=== PATIENT | female | born 1950 | race African-American/Black ===

== ENCOUNTER 2018-10-09 16:26 | Emergency (ER) | payer MEDICARE ==
[2018-10-09] MEDS ORDERED: ASPIRIN 81 MG TABLET, CHEWABLE PO ONE (17:25)
--- NOTE | 2018-10-09 17:27 | ER Document Report ---
ED Medical Screen (RME) - General Chief Complaint: Chest Pain Stated Complaint: CHEST PAIN Time Seen by Provider: 10/09/18 17:15 Notes: 68-year-old female with one-week history of worsening chest pain. 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 Could not go see them because she did not have the co-pay. Did have a recent CT calcium score with a score in the 80s giving her moderate coronary artery disease and moderate risk. Patient states that she also has a cough and some mild shortness of breath. Pain radiates around central portion of chest to her back. Does have fibromyalgia. Does have diabetes, family history of heart disease, hypertension, hyperlipidemia not treated. I have greeted and performed a rapid initial assessment of this patient. A comprehensive ED assessment and evaluation of the patient, analysis of test results and completion of the medical decision making process will be conducted by additional ED providers. TRAVEL OUTSIDE OF THE [place] IN LAST 30 DAYS: No - Related Data Allergies/Adverse Reactions: codeine Allergy (Verified 10/09/18 16:29) erythromycin base Allergy (Verified 10/09/18 16:29) Past Medical History - General Information source: Patient - Social History Chew tobacco use (# tins/day): No Frequency of alcohol use: None Drug Abuse: None Pulmonary Medical History: Reports: Hx COPD Endocrine Medical History: Reports: Hx Diabetes Mellitus Type 2 Renal/ Medical History: Denies: Hx Peritoneal Dialysis Past Surgical History: Reports: Hx Abdominal Surgery - obstruction, Hx Hysterectomy Review of Systems - Review of Systems Notes: Review of systems positive for the following: Chest pain, shortness of breath Physical Exam - Vital signs Vitals: Temp Pulse Resp BP Pulse Ox 98.5 F 100 18 143/71 H 97 10/09/18 16:41 10/09/18 16:41 10/09/18 16:41 10/09/18 16:41 10/09/18 16:41 Course - Vital Signs Vital signs: Temp Pulse Resp BP Pulse Ox 98.5 F 100 18 143/71 H 97 10/09/18 16:41 10/09/18 16:41 10/09/18 16:41 10/09/18 16:41 10/09/18 16:41
--- NOTE | 2018-10-09 17:55 | RADIOLOGY REPORT (SQ) ---
EXAM DESCRIPTION: CHEST SINGLE VIEW COMPLETED DATE/TIME: 10/09/2018 5:48 pm REASON FOR STUDY: chest pain COMPARISON: None. EXAM PARAMETERS: NUMBER OF VIEWS: One view. TECHNIQUE: Single frontal radiographic view of the chest acquired. RADIATION DOSE: NA LIMITATIONS: None. FINDINGS: LUNGS AND PLEURA: No opacities, masses or pneumothorax. No pleural effusion. MEDIASTINUM AND HILAR STRUCTURES: No masses. Contour normal. HEART AND VASCULAR STRUCTURES: Heart normal in size. Normal vasculature. BONES: No acute findings. HARDWARE: None in the chest. OTHER: No other significant finding. IMPRESSION: NO ACUTE RADIOGRAPHIC FINDING IN THE CHEST. TECHNICAL DOCUMENTATION: JOB ID: [id number] [employer]- All Rights Reserved Reading location - IP/workstation name: [email or web address]
--- NOTE | 2018-10-09 19:25 | EKG REPORT ---
SEVERITY:- BORDERLINE ECG - SINUS RHYTHM PROBABLE LEFT ATRIAL ABNORMALITY : Confirmed by: Jayy Mcdonough 09-Oct-2018 19:24:50
[2018-10-09 19:33] LABS: ABSOLUTE BASOPHILS # (AUTO) 0.1 10^3/uL (0.0-0.2); ABSOLUTE EOSINOPHILS # (AUTO) 0.2 10^3/uL (0.0-0.6); ABSOLUTE LYMPHOCYTES (AUTO) 2.8 10^3/uL (0.5-4.7); ABSOLUTE MONOCYTES (AUTO) 0.8 10^3/uL (0.1-1.4); ABSOLUTE NEUT (AUTO) 7.2 10^3/uL (1.7-8.2); BASOPHILS % (AUTO) 1.2 % (0-2); HEMATOCRIT 35.5 % (36.0-47.0); HEMOGLOBIN 11.5 g/dL (12.0-15.5); LYMPHOCYTES % (AUTO) 25.4 % (13-45); MEAN CORPUSCULAR HEMOGLOBIN 27.4 pg (27.0-33.4); MEAN CORPUSCULAR HGB CONC 32.4 g/dL (32.0-36.0); MEAN CORPUSCULAR VOLUME 85 fl (80-97); PLATELET COUNT 325 10^3/uL (150-450); RED BLOOD COUNT 4.19 10^6/uL (3.72-5.28); RED CELL DISTRIBUTION WIDTH 15.7 % (11.5-14.0); SEGMENTED NEUTROPHILS % (AUTO) 64.4 % (42-78); TOTAL CELLS COUNTED % (AUTO) 100 %; WHITE BLOOD COUNT 11.2 10^3/uL (4.0-10.5)
[2018-10-09 19:49] LABS: ALANINE AMINOTRANSFERASE 29 U/L (9-52); ALBUMIN 4.4 g/dL (3.5-5.0); ALKALINE PHOSPHATASE 95 U/L (38-126); ANION GAP 10 (5-19); ASPARTATE AMINO TRANSFERASE 24 U/L (14-36); BILIRUBIN,DIRECT 0.2 mg/dL (0.0-0.4); BILIRUBIN,TOTAL 0.2 mg/dL (0.2-1.3); BLOOD UREA NITROGEN 15 mg/dL (7-20); CALCIUM 9.8 mg/dL (8.4-10.2); CARBON DIOXIDE 26 mmol/L (22-30); CHLORIDE 103 mmol/L (98-107); CREATINE KINASE 123 U/L (30-135); GLUCOSE 115 mg/dL (75-110); POTASSIUM 4.4 mmol/L (3.6-5.0); SODIUM 138.9 mmol/L (137-145); TOTAL PROTEIN 7.2 g/dL (6.3-8.2)
[2018-10-09 20:01] LABS: CREATINE KINASE MB 1.43 ng/mL (<4.55)
[2018-10-09 20:02] LABS: TROPONIN I < 0.012 ng/mL
--- NOTE | 2018-10-09 20:23 | ER Document Report ---
ED General - General Chief Complaint: Chest Pain Stated Complaint: CHEST PAIN Time Seen by Provider: 10/09/18 17:15 TRAVEL OUTSIDE OF THE [place] IN LAST 30 DAYS: No - Related Data Allergies/Adverse Reactions: codeine Allergy (Verified 10/09/18 16:29) erythromycin base Allergy (Verified 10/09/18 16:29) Past Medical History - General Information source: Patient - Social History Smoking Status: Former Smoker Chew tobacco use (# tins/day): No Frequency of alcohol use: None Drug Abuse: None Patient has suicidal ideation: No Patient has homicidal ideation: No Pulmonary Medical History: Reports: Hx COPD Endocrine Medical History: Reports: Hx Diabetes Mellitus Type 2 Renal/ Medical History: Denies: Hx Peritoneal Dialysis Past Surgical History: Reports: Hx Abdominal Surgery - obstruction, Hx Hysterectomy Physical Exam - Vital signs Vitals: Temp Pulse Resp BP Pulse Ox 98.5 F 100 18 143/71 H 97 10/09/18 16:41 10/09/18 16:41 10/09/18 16:41 10/09/18 16:41 10/09/18 16:41 Course - Vital Signs Vital signs: Temp Pulse Resp BP Pulse Ox 98.5 F 100 18 117/93 H 98 10/09/18 16:41 10/09/18 16:41 10/09/18 20:01 10/09/18 19:49 10/09/18 20:01 - Laboratory Result Diagrams: 10/09/18 19:20 10/09/18 19:20 Laboratory results interpreted by me: 10/09/18 10/09/18 19:20 19:20 WBC 11.2 H Hgb 11.5 L Hct 35.5 L RDW 15.7 H Glucose 115 H Discharge - Discharge Referrals: HENRIK JEFFERSON MD [Primary Care Provider] - Follow up as needed
--- NOTE | 2018-10-09 20:25 | ER Document Report ---
ED General - General Chief Complaint: Chest Pain Stated Complaint: CHEST PAIN Time Seen by Provider: 10/09/18 17:15 TRAVEL OUTSIDE OF THE [place] IN LAST 30 DAYS: No - HPI Patient complains to provider of: Chest pain shortness of breath Notes: Patient coming in for chest pain shortness of breath ongoing for greater than 2 weeks intermittent. Patient was seen by triage provider's notes provided below 68-year-old female with one-week history of worsening chest pain. 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 Could not go see them because she did not have the co-pay. Did have a recent CT calcium score with a score in the 80s giving her moderate coronary artery disease and moderate risk. Patient states that she also has a cough and some mild shortness of breath. Pain radiates around central portion of chest to her back. Does have fibromyalgia. Does have diabetes, family history of heart disease, hypertension, hyperlipidemia not treated. Patient upon my evaluation states 2 weeks of symptoms. Patient states she was supposed to start medications for her recent CT calcium score however has yet to be placed on these medications. Patient currently states he is chest pain-free. Patient states chest pain has been intermittent worsen whenever she ambulates. Patient denies any other cardiac testing such as an echo stress test or catheterization in the past. Patient states that he does have inhalers that she uses at home for underlying respiratory disease however states that she has not been used denies any recent antibiotic denies any fever chills nausea vomiting diarrhea - Related Data Allergies/Adverse Reactions: codeine Allergy (Verified 10/09/18 16:29) erythromycin base Allergy (Verified 10/09/18 16:29) Past Medical History - General Information source: Patient - Social History Smoking Status: Former Smoker Chew tobacco use (# tins/day): No Frequency of alcohol use: None Drug Abuse: None Family History: Reviewed & Not Pertinent Patient has suicidal ideation: No Patient has homicidal ideation: No Pulmonary Medical History: Reports: Hx COPD Endocrine Medical History: Reports: Hx Diabetes Mellitus Type 2 Renal/ Medical History: Denies: Hx Peritoneal Dialysis Past Surgical History: Reports: Hx Abdominal Surgery - obstruction, Hx Hysterectomy Review of Systems - Review of Systems Constitutional: No symptoms reported EENT: No symptoms reported Cardiovascular: Chest pain Respiratory: No symptoms reported Gastrointestinal: No symptoms reported Genitourinary: No symptoms reported Female Genitourinary: No symptoms reported Musculoskeletal: No symptoms reported Skin: No symptoms reported Hematologic/Lymphatic: No symptoms reported Neurological/Psychological: No symptoms reported -: Yes All other systems reviewed and negative Physical Exam - Vital signs Vitals: Temp Pulse Resp BP Pulse Ox 98.5 F 100 18 143/71 H 97 10/09/18 16:41 10/09/18 16:41 10/09/18 16:41 10/09/18 16:41 10/09/18 16:41 Interpretation: Normal - General General appearance: Appears well, Alert - HEENT Head: Normocephalic, Atraumatic Eyes: Normal Pupils: PERRL - Respiratory Respiratory status: No respiratory distress Chest status: Nontender Breath sounds: Normal Chest palpation: Normal - Cardiovascular Rhythm: Regular Heart sounds: Normal auscultation Murmur: No - Abdominal Inspection: Normal Distension: No distension Bowel sounds: Normal Tenderness: Nontender Organomegaly: No organomegaly - Back Back: Normal, Nontender - Extremities General upper extremity: Normal inspection, Nontender, Normal color, Normal ROM, Normal temperature General lower extremity: Normal inspection, Nontender, Normal color, Normal ROM, Normal temperature, Normal weight bearing. No: Bernardo's sign - Neurological Neuro grossly intact: Yes Cognition: Normal Orientation: AAOx4 [place] Coma Scale Eye Opening: Spontaneous [place] Coma Scale Verbal: Oriented [place] Coma Scale Motor: Obeys Commands Dana Coma Scale Total: 15 Speech: Normal Motor strength normal: LUE, RUE, LLE, RLE Sensory: Normal - Psychological Associated symptoms: Normal affect, Normal mood - Skin Skin Temperature: Warm Skin Moisture: Dry Skin Color: Normal Course - Re-evaluation Re-evalutation: 10/10/18 03:10 Patient coming in for evaluation of chest pain shortness of breath ongoing for greater than [address] scan laboratory results EKG were discussed with cardiology on-call Dr. Hannon recommends with negative troponin at this time patient be discharged he will follow-up with the patient in the next 24-48 hours requesting that we give the patient his cell phone number. Recommend that we start patient aspirin statin metoprolol and long-acting nitrate. Discussed with the patient she agrees with this plan at this time. - Vital Signs Vital signs: Temp Pulse Resp BP Pulse Ox 98.5 F 100 18 149/79 H 97 10/09/18 16:41 10/09/18 16:41 10/09/18 23:01 10/09/18 23:01 10/09/18 23:01 - Laboratory Result Diagrams: 10/09/18 19:20 10/09/18 19:20 Laboratory results interpreted by me: 10/09/18 10/09/18 10/09/18 19:20 19:20 21:22 WBC 11.2 H Hgb 11.5 L Hct 35.5 L RDW 15.7 H Glucose 115 H Cholesterol 250.65 H LDL Cholesterol Direct 168 H Discharge - Discharge Clinical Impression: Chest pain Qualifiers: Chest pain type: unspecified Qualified Code(s): R07.9 - Chest pain, unspecified Condition: Good Disposition: HOME, SELF-CARE Instructions: Aspirin (Cardiac) (OM), Chest Pain of Unclear Cause (OM), Nitr ates (OM) Additional Instructions: I discussed your laboratory findings your recent testing with our manager mutual fund Dr. Hannon. At this time he recommends that we start you on a low-dose statin medication such as Crestor aspirin 325 and Imdur. Please call him tomorrow to set up a follow-up appointment Dr Hannon . Please take all your other medications as previously prescribed return to ER symptoms worsen Prescriptions: Aspirin [Aspirin 325 mg Tablet] 325 mg PO DAILY PRN #1 pkg PRN Reason: Isosorbide Mononitrate [Imdur 30 mg Tablet.er] 30 mg PO DAILY #30 tab.er.24h Metoprolol Succinate [Toprol Xl] 12.5 mg PO DAILY #30 tab.er.24h Rosuvastatin Calcium [Crestor 10 mg Tablet] 10 mg PO DAILY #30 tablet Referrals: HENRIK JEFFERSON MD [Primary Care Provider] - Follow up as needed
[2018-10-09 21:53] LABS: CHOLESTEROL 250.65 mg/dL (0-200); TRIGLYCERIDES 107 mg/dL (<150)
[2018-10-09 22:03] LABS: DIRECT LDL 168 mg/dL (<100)
[2018-10-09] MEDS ORDERED: ATORVASTATIN CALCIUM 20 MG TABLET PO ONE (22:28)
[2018-10-09 23:04] VITALS: BP 149/79
== END 2018-10-09 23:14 | disposition home or self-care (01) ==
LOC: ER 16:26
DX: R07.9 Chest pain, unspecified (principal); R06.02 Shortness of breath; I25.10 Atherosclerotic heart disease of native coronary artery without angina pectoris; R05 Cough; E11.9 Type 2 diabetes mellitus without complications; I10 Essential (primary) hypertension; Z87.891 Personal history of nicotine dependence; J44.9 Chronic obstructive pulmonary disease, unspecified
CPT/HCPCS: 93005; 99284; 36415; 82553; 82550; 85025; 80053; 84484; 80061; 71045; 93010; A9270

== ENCOUNTER 2018-11-08 17:33 | Emergency (ER) | payer MEDICARE ==
[2018-11-08 18:05] LABS: ABSOLUTE BASOPHILS # (AUTO) 0.1 10^3/uL (0.0-0.2); ABSOLUTE EOSINOPHILS # (AUTO) 0.2 10^3/uL (0.0-0.6); ABSOLUTE LYMPHOCYTES (AUTO) 1.6 10^3/uL (0.5-4.7); ABSOLUTE MONOCYTES (AUTO) 0.8 10^3/uL (0.1-1.4); ABSOLUTE NEUT (AUTO) 8.1 10^3/uL (1.7-8.2); BASOPHILS % (AUTO) 0.6 % (0-2); EOSINOPHILS % (AUTO) 1.4 % (0-6); HEMATOCRIT 36.9 % (36.0-47.0); HEMOGLOBIN 12.1 g/dL (12.0-15.5); MEAN CORPUSCULAR HEMOGLOBIN 27.7 pg (27.0-33.4); MEAN CORPUSCULAR HGB CONC 32.9 g/dL (32.0-36.0); MEAN CORPUSCULAR VOLUME 84 fl (80-97); MONOCYTES % (AUTO) 7.1 % (3-13); PLATELET COUNT 334 10^3/uL (150-450); RED BLOOD COUNT 4.38 10^6/uL (3.72-5.28); RED CELL DISTRIBUTION WIDTH 15.8 % (11.5-14.0); SEGMENTED NEUTROPHILS % (AUTO) 75.9 % (42-78); TOTAL CELLS COUNTED % (AUTO) 100 %; WHITE BLOOD COUNT 10.7 10^3/uL (4.0-10.5)
[2018-11-08 18:24] LABS: ALANINE AMINOTRANSFERASE 29 U/L (9-52); ALBUMIN 4.5 g/dL (3.5-5.0); ALKALINE PHOSPHATASE 122 U/L (38-126); ANION GAP 13 (5-19); ASPARTATE AMINO TRANSFERASE 27 U/L (14-36); BILIRUBIN,DIRECT 0.3 mg/dL (0.0-0.4); BILIRUBIN,TOTAL 0.3 mg/dL (0.2-1.3); BLOOD UREA NITROGEN 15 mg/dL (7-20); CALCIUM 9.7 mg/dL (8.4-10.2); CARBON DIOXIDE 27 mmol/L (22-30); CHLORIDE 100 mmol/L (98-107); CREATINE KINASE 125 U/L (30-135); GLUCOSE 345 mg/dL (75-110); POTASSIUM 4.6 mmol/L (3.6-5.0); SODIUM 140.3 mmol/L (137-145); TOTAL PROTEIN 7.3 g/dL (6.3-8.2)
--- NOTE | 2018-11-08 18:25 | RADIOLOGY REPORT (SQ) ---
EXAM DESCRIPTION: CHEST SINGLE VIEW COMPLETED DATE/TIME: 11/08/2018 6:15 pm REASON FOR STUDY: bed 11 cp COMPARISON: None. EXAM PARAMETERS: NUMBER OF VIEWS: One view. TECHNIQUE: Single frontal radiographic view of the chest acquired. RADIATION DOSE: NA LIMITATIONS: None. FINDINGS: LUNGS AND PLEURA: No opacities, masses or pneumothorax. No pleural effusion. MEDIASTINUM AND HILAR STRUCTURES: No masses. Contour normal. HEART AND VASCULAR STRUCTURES: Heart normal in size. Normal vasculature. BONES: No acute findings. HARDWARE: None in the chest. OTHER: No other significant finding. IMPRESSION: NO ACUTE RADIOGRAPHIC FINDING IN THE CHEST. TECHNICAL DOCUMENTATION: JOB ID: [id number] [employer]- All Rights Reserved Reading location - IP/workstation name: [email or web address]
[2018-11-08 18:34] LABS: CREATINE KINASE MB 1.45 ng/mL (<4.55); TROPONIN I 0.014 ng/mL
--- NOTE | 2018-11-08 19:26 | ER Document Report ---
ED General - General Chief Complaint: Chest Pain Stated Complaint: CHEST PAIN Time Seen by Provider: 11/08/18 18:28 Primary Care Provider: HENRIK JEFFERSON MD [Primary Care Provider] - Follow up as needed LUCILLE RANGEL MD [ACTIVE STAFF] - Follow up in 3-5 days Notes: Patient is a 68-year-old female with a past medical history of diabetes, hyperlipidemia, hypertension, no history of coronary artery events who presents with recurrent chest pain. Patient reports that for the past 2-3 months she has had intermittent episodes of left-sided chest discomfort. States these episodes come on abruptly sometimes during exertion and other times during rest. It is described as an aching, cramping type of pain usually in her left chest without radiation. Notes associated nausea but no diaphoresis or shortness of breath. She has had 3 similar episodes today. States that she has had dozens over the past several months. She has been following with Dr. Rangel, had a negative stress test, normal echocardiogram and normal Holter monitor within the past several weeks. She last saw Dr. Rangel today. Came by EMS today due to a recurrent episode of chest pain which has since resolved. The patient currently denies any symptoms. She did take nitroglycerin at home with some relief of her chest discomfort. No obvious triggering factor today. TRAVEL OUTSIDE OF THE [place] IN LAST 30 DAYS: No - Related Data Allergies/Adverse Reactions: codeine Allergy (Verified 10/09/18 16:29) erythromycin base Allergy (Verified 10/09/18 16:29) Past Medical History - General Information source: Patient - Social History Smoking Status: Never Smoker Frequency of alcohol use: None Drug Abuse: None Lives with: Friend Family History: Reviewed & Not Pertinent Patient has suicidal ideation: No Patient has homicidal ideation: No Pulmonary Medical History: Reports: Hx COPD Endocrine Medical History: Reports: Hx Diabetes Mellitus Type 2 Renal/ Medical History: Denies: Hx Peritoneal Dialysis Past Surgical History: Reports: Hx Abdominal Surgery - obstruction, Hx Hysterectomy Review of Systems - Review of Systems Notes: Constitutional: Negative for fever. HENT: Negative for sore throat. Eyes: Negative for visual changes. Cardiovascular: Positive for chest pain. Respiratory: Negative for shortness of breath. Gastrointestinal: Negative for abdominal pain, vomiting or diarrhea. Genitourinary: Negative for dysuria. Musculoskeletal: Negative for back pain. Skin: Negative for rash. Neurological: Negative for headaches, weakness or numbness. 10 point ROS negative except as marked above and in HPI. Physical Exam - Vital signs Vitals: Resp Pulse Ox 24 H 95 11/08/18 18:09 11/08/18 18:09 Interpretation: Normal - Patient is not tachypneic at the time of my evaluation without respiratory rate of 18, Hypertensive Notes: PHYSICAL EXAMINATION: GENERAL: Well-appearing, well-nourished and in no acute distress. HEAD: Atraumatic, normocephalic. EYES: Pupils equal round and reactive to light, extraocular movements intact, sclera anicteric, conjunctiva are normal. ENT: nares patent, oropharynx clear without exudates. Moist mucous membranes. NECK: Normal range of motion, supple without lymphadenopathy LUNGS: Breath sounds clear to auscultation bilaterally and equal. No wheezes rales or rhonchi. HEART: Regular rate and rhythm, faint, 2 out of 6 systolic ejection murmur ABDOMEN: Soft, nontender, normoactive bowel sounds. No guarding, no rebound. No masses appreciated. EXTREMITIES: Normal range of motion, no pitting or edema. No cyanosis. NEUROLOGICAL: No focal neurological deficits. Moves all extremities spontaneously and on command. PSYCH: Normal mood, normal affect. SKIN: Warm, Dry, normal turgor, no rashes or lesions noted. Course - Re-evaluation Re-evalutation: 11/08/18 19:24 Presentation of chest pain in an otherwise well appearing patient. Low clinical suspicion for ACS given clinical history, exam, EKG without ST elevations or depressions, and negative initial troponin. Repeat troponin will be done 3 hours after initial. PE also seems unlikely given clinical history, absence of tachycardia or dyspnea. Wells score is 0. CXR without evidence of pneumothorax or pneumonia. No widened mediastinum. Aortic dissection also seems unlikely given history, symmetric pulses, CXR, and vitals. Patient has had a negative stress test within the last 1 week as well as a normal echocardiogram and normal Holter monitor test. 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 Radha pinto who suspects agrees with our plan. 11/08/18 21:27 Repeat trop has increased to 0.123. Patient remains without chest pain. Repeat EKG remains unchanged without EKG changes. I discussed with Dr. Rangel who recommends transfer for cardiac catheterization. 11/08/18 21:54 Patient remains chest pain-free. I discussed this case with the resident at [facility] covering for Dr. Vazquez who has accepted the patient on Dr. Vazquez's behalf. Patient has received a dose of enoxaparin, aspirin and atorvastatin. Remains chest pain-free. 2350-patient is cleared and stable for transfer - Vital Signs Vital signs: Temp Pulse Resp BP Pulse Ox 97.7 F 20 133/66 H 97 11/08/18 23:20 11/08/18 23:01 11/08/18 23:01 11/08/18 23:01 - Laboratory Result Diagrams: 11/08/18 17:28 11/08/18 17:28 Laboratory results interpreted by me: 11/08/18 11/08/18 17:28 17:28 WBC 10.7 H RDW 15.8 H Glucose 345 H - Diagnostic Test Radiology reviewed: Image reviewed, Reports reviewed Radiology results interpreted by me: 11/08/18 19:24 Chest x-ray: No acute infiltrate or pneumothorax - EKG Interpretation by Me Additional EKG results interpreted by me: 11/08/18 19:24 Sinus rhythm, rate 97. No ST elevations or depressions. QTC is 442. Discharge - Discharge Clinical Impression: Recurrent chest pain Condition: Fair Disposition: [facility] Referrals: HENRIK JEFFERSON MD [Primary Care Provider] - Follow up as needed LUCILLE RANGEL MD [ACTIVE STAFF] - Follow up in 3-5 days
[2018-11-08] MEDS ORDERED: ASPIRIN 81 MG TABLET, CHEWABLE PO ONE (21:52)
[2018-11-08] MEDS ORDERED: ATORVASTATIN CALCIUM 80 MG TABLET PO ONE (21:52)
[2018-11-08] MEDS ORDERED: NITROGLYCERIN 0.4 MG/TAB 25 TAB/BOTTLE SL PRN (21:54)
[2018-11-08] MEDS ORDERED: ENOXAPARIN SODIUM INJ 80 MG/0.8 ML DISP.SYRIN SUBCUT SCH (22:00)
--- NOTE | 2018-11-08 22:11 | EKG REPORT ---
SEVERITY:- NORMAL ECG - SINUS RHYTHM : Confirmed by: Shanae Hannon MD 08-Nov-2018 22:09:41
[2018-11-08 23:45] VITALS: BP 133/66
--- NOTE | 2018-11-09 08:58 | EKG REPORT ---
SEVERITY:- NORMAL ECG - SINUS RHYTHM : Confirmed by: Shanae Hannon MD 09-Nov-2018 08:57:19
== END 2018-11-09 00:02 | disposition short-term general hospital (02) ==
LOC: ER 17:33
DX: R07.9 Chest pain, unspecified (principal); R11.0 Nausea; R01.1 Cardiac murmur, unspecified; I10 Essential (primary) hypertension; E11.9 Type 2 diabetes mellitus without complications; J44.9 Chronic obstructive pulmonary disease, unspecified; Z88.5 Allergy status to narcotic agent; Z88.1 Allergy status to other antibiotic agents
CPT/HCPCS: 93005; 99285; 96372; 36415; 82553; 82550; 85025; 80053; 84484; 71045; 93010; A9270 ×2; J1650

== ENCOUNTER 2019-01-28 13:57 | Observation (INO) | payer MEDICARE, OTHER ==
[2019-01-28] MEDS ORDERED: ASPIRIN 81 MG TABLET, CHEWABLE PO ONE (14:31)
--- NOTE | 2019-01-28 14:31 | ER Document Report ---
ED Medical Screen (RME) - General Chief Complaint: Chest Pain Stated Complaint: CHEST PAIN Time Seen by Provider: 01/28/19 14:29 Primary Care Provider: HENRIK JEFFERSON MD [Primary Care Provider] - Follow up as needed Mode of Arrival: Ambulatory Information source: Patient Notes: 68-year-old female presented to ED for complaint of chest pain off and on since before October when she had cardiac cath with stents. She states the pain is worse for the last several days it is substernal going down her both arms worse on the left. She states she is in cardiac rehab in the therapist told her that it could be from the exercises she is doing or he could be from her heart that she needed to get it checked out. She does have a history of high blood pressure coronary artery disease cholesterol fibromyalgia and sleep apnea. She had a cardiac cath with 2 stents in October of this year. She has had carpal tunnel syndrome intestinal obstructions surgery and hysterectomy. She does not drink smoke or use any drugs. She is a former smoker and she lives with a roommate. Patient is alert oriented respirations regular and unlabored at this time. She states she was concerned because the pain did get worse. I have greeted and performed a rapid initial assessment of this patient. A comprehensive ED assessment and evaluation of the patient, analysis of test results and completion of medical decision making process will be conducted by an additional ED providers. TRAVEL OUTSIDE OF THE [place] IN LAST 30 DAYS: No - Related Data Allergies/Adverse Reactions: codeine Allergy (Verified 10/09/18 16:29) erythromycin base Allergy (Verified 10/09/18 16:29) Past Medical History Pulmonary Medical History: Reports: Hx COPD Endocrine Medical History: Reports: Hx Diabetes Mellitus Type 2 Renal/ Medical History: Denies: Hx Peritoneal Dialysis Past Surgical History: Reports: Hx Abdominal Surgery - obstruction, Hx Hysterectomy Doctor's Discharge - Discharge Referrals: HENRIK JEFFERSON MD [Primary Care Provider] - Follow up as needed
--- NOTE | 2019-01-28 15:14 | RADIOLOGY REPORT (SQ) ---
EXAM DESCRIPTION: CHEST 2 VIEWS COMPLETED DATE/TIME: 01/28/2019 3:07 pm REASON FOR STUDY: chest pain COMPARISON: 11/08/2018 EXAM PARAMETERS: NUMBER OF VIEWS: two views TECHNIQUE: Digital Frontal and Lateral radiographic views of the chest acquired. RADIATION DOSE: NA LIMITATIONS: none FINDINGS: LUNGS AND PLEURA: No opacities, masses or pneumothorax. No pleural effusion. MEDIASTINUM AND HILAR STRUCTURES: No masses or contour abnormalities. HEART AND VASCULAR STRUCTURES: Heart normal size. No evidence for failure. BONES: No acute findings. HARDWARE: None in the chest. OTHER: No other significant finding. IMPRESSION: NO ACUTE RADIOGRAPHIC FINDING IN THE CHEST. TECHNICAL DOCUMENTATION: JOB ID: [id number] [employer]- All Rights Reserved Reading location - IP/workstation name: [email or web address]
[2019-01-28 15:22] LABS: ABSOLUTE BASOPHILS # (AUTO) 0.1 10^3/uL (0.0-0.2); ABSOLUTE EOSINOPHILS # (AUTO) 0.1 10^3/uL (0.0-0.6); ABSOLUTE LYMPHOCYTES (AUTO) 2.4 10^3/uL (0.5-4.7); ABSOLUTE MONOCYTES (AUTO) 0.6 10^3/uL (0.1-1.4); BASOPHILS % (AUTO) 0.8 % (0-2); HEMATOCRIT 35.3 % (36.0-47.0); HEMOGLOBIN 11.4 g/dL (12.0-15.5); LYMPHOCYTES % (AUTO) 23.4 % (13-45); MEAN CORPUSCULAR HEMOGLOBIN 27.1 pg (27.0-33.4); MEAN CORPUSCULAR HGB CONC 32.3 g/dL (32.0-36.0); MEAN CORPUSCULAR VOLUME 84 fl (80-97); MONOCYTES % (AUTO) 5.9 % (3-13); PLATELET COUNT 362 10^3/uL (150-450); RED CELL DISTRIBUTION WIDTH 16.5 % (11.5-14.0); SEGMENTED NEUTROPHILS % (AUTO) 68.9 % (42-78); TOTAL CELLS COUNTED % (AUTO) 100 %; WHITE BLOOD COUNT 10.1 10^3/uL (4.0-10.5)
[2019-01-28 15:41] LABS: ALANINE AMINOTRANSFERASE 35 U/L (9-52); ALBUMIN 4.3 g/dL (3.5-5.0); ALKALINE PHOSPHATASE 80 U/L (38-126); ANION GAP 12 (5-19); ASPARTATE AMINO TRANSFERASE 31 U/L (14-36); BILIRUBIN,DIRECT 0.2 mg/dL (0.0-0.4); BILIRUBIN,TOTAL 0.2 mg/dL (0.2-1.3); BLOOD UREA NITROGEN 19 mg/dL (7-20); CALCIUM 10.3 mg/dL (8.4-10.2); CARBON DIOXIDE 28 mmol/L (22-30); CHLORIDE 100 mmol/L (98-107); GLUCOSE 91 mg/dL (75-110); LIPASE 125.2 U/L (23-300); POTASSIUM 4.4 mmol/L (3.6-5.0); SODIUM 140.1 mmol/L (137-145); TOTAL PROTEIN 7.7 g/dL (6.3-8.2)
[2019-01-28 15:48] LABS: CREATINE KINASE MB 1.32 ng/mL (<4.55)
[2019-01-28 15:52] LABS: TROPONIN I < 0.012 ng/mL
--- NOTE | 2019-01-28 16:11 | EKG REPORT ---
SEVERITY:- NORMAL ECG - SINUS RHYTHM : Confirmed by: Shanae Hannon MD 28-Jan-2019 16:10:19
--- NOTE | 2019-01-28 16:51 | ER Document Report ---
ED General - General Chief Complaint: Chest Pain Stated Complaint: CHEST PAIN Time Seen by Provider: 01/28/19 14:29 Primary Care Provider: HENRIK JEFFERSON MD [Primary Care Provider] - Follow up as needed Mode of Arrival: Ambulatory TRAVEL OUTSIDE OF THE [place] IN LAST 30 DAYS: No - HPI Notes: Patient is a 68-year-old female with history of type 2 diabetes, hypertension, hypercholesterolemia, COPD, sleep apnea, coronary artery disease (2 stents placed November 09 of this year) who presents to the emergency department complaining of chest tightness that began 3 days ago, but resolved upon arrival today. Patient states that the pain would radiate to her arms into her jaw which mimicked the same pain that she had when she had an NSTEMI. Patient s tates that she currently does not have any pain. She did have associated nausea, vomiting. She is eating and drinking without difficulty. She is urinating normally. Patient states that her symptoms were worsened when she would ambulate. She was directed here by her cardiac rehab therapist. Denies any headache, fever, neck pain, URI, sore throat, palpitations, syncope, cough, shortness of breath at rest, wheeze, abdominal pain, nausea/vomiting/diarrhea, urinary retention, dysuria, hematuria, or rash. - Related Data Allergies/Adverse Reactions: codeine Allergy (Verified 10/09/18 16:29) erythromycin base Allergy (Verified 10/09/18 16:29) Past Medical History - General Information source: Patient - Social History Smoking Status: Former Smoker Frequency of alcohol use: None Drug Abuse: None Family History: Reviewed & Not Pertinent Patient has suicidal ideation: No Patient has homicidal ideation: No - Past Medical History Cardiac Medical History: Reports: Hx Hypercholesterolemia, Hx Hypertension Pulmonary Medical History: Reports: Hx COPD Endocrine Medical History: Reports: Hx Diabetes Mellitus Type 2 Renal/ Medical History: Denies: Hx Peritoneal Dialysis Past Surgical History: Reports: Hx Abdominal Surgery - obstruction, Hx Cardiac Surgery - stents x2, Hx Hysterectomy, Hx Orthopedic Surgery - carpal tunnel Review of Systems - Review of Systems -: Yes All other systems reviewed and negative Physical Exam - Notes Notes: PHYSICAL EXAMINATION: GENERAL: Well-appearing, well-nourished and in no acute distress. HEAD: Atraumatic, normocephalic. EYES: Pupils equal round and reactive to light, extraocular movements intact, s clera anicteric, conjunctiva are normal. ENT: Nares patent and without discharge. oropharynx clear without exudates. No tonsilar hypertrophy or erythema. Moist mucous membranes. NECK: Normal range of motion, supple without lymphadenopathy LUNGS: Breath sounds clear to auscultation bilaterally and equal. No wheezes rales or rhonchi. HEART: Regular rate and rhythm without murmurs, rubs, gallops. ABDOMEN: Soft, nontender, nondistended abdomen. No guarding, no rebound. Normal bowel sounds present. No CVA tenderness bilaterally. Musculoskeletal: FROM to passive/active. Strength 5+/5. Bernardo neg. No asymmetry to LE's. Extremities: No cyanosis, clubbing, or edema b/l. Peripheral pulses 2+. Capillary refill less than 3 seconds. NEUROLOGICAL: Normal speech, normal gait. PSYCH: Normal mood, normal affect. SKIN: Warm, Dry, normal turgor, no rashes or lesions noted. Course - Re-evaluation Re-evalutation: 01/28/19 16:52 Patient is an afebrile, well-hydrated 68-year-old female who presents to the ED with chest pain, unspecified. Vitals are acceptable without any significant tachycardia, tachypnea, or hypoxia. PE is otherwise unremarkable. Patient is nontoxic-appearing and is tolerating p.o. without any difficulties. Pt is currently asymptomatic. CBC, CMP, EKG/cardiac enzymes, chest x-ray are all u nremarkable for any acute pathology. Patient has a heart score of 4. I will speak with our hospitalist for admission for chest pain observation. 01/28/19 16:[address] Spence who accepted pt for admit to [facility]. - Laboratory Result Diagrams: 01/28/19 15:00 01/28/19 15:00 Laboratory results interpreted by me: 01/28/19 01/28/19 15:00 15:00 Hgb 11.4 L Hct 35.3 L RDW 16.5 H Calcium 10.3 H Discharge - Discharge Clinical Impression: Atypical chest pain Condition: Stable Disposition: ADMITTED INPATIENT Admitting Provider: Jordy (Hospitalist) Unit Admitted: Telemetry Referrals: HENRIK JEFFERSON MD [Primary Care Provider] - Follow up as needed
[2019-01-28] MEDS ORDERED: LEVALBUTEROL HCL NEB 0.63 MG/3 ML AMPUL NEB PRN (17:23)
[2019-01-28] MEDS ORDERED: ACETAMINOPHEN 325 MG TABLET PO PRN (17:23)
[2019-01-28] MEDS ORDERED: ONDANSETRON HCL INJ/PF 4 MG/2 ML SDV IV PRN (17:23)
--- NOTE | 2019-01-28 17:37 | PDOC H&P ---
History of Present Illness Admission Date/PCP: 01/28/19 17:01 HENRIK JEFFERSON MD Patient complains of: Chest pain since Monday History of Present Illness: EDUARD MCMAHON is a 68 year old female with history of coronary artery disease status post stent placement in LAD and RCA in November 09 this year, hypertension, hyperlipidemia, diabetes mellitus, COPD came to the emergency room with complaints of chest pain since last Monday. Patient complaining of nausea and vomiting along with chest pains. Also complaining of increased warmth. Decided to came to the emergency room today. At the time of my examination patient is chest pain-free. Troponins EKG came back negative. Past Medical History Cardiac Medical History: Reports: Hyperlipidema, Hypertension Pulmonary Medical History: Reports: Chronic Obstructive Pulmonary Disease (COPD) Endocrine Medical History: Reports: Diabetes Mellitus Type 2 Past Surgical History Past Surgical History: Reports: Hysterectomy, Orthopedic Surgery - carpal tunnel Social History Smoking Status: Former Smoker - Advance Directive Resuscitation Status: Full Code Family History Family History: Reviewed & Not Pertinent Parental Family History Reviewed: Yes - Father and mother with heart attacks Children Family History Reviewed: Yes Sibling(s) Family History Reviewed.: Yes Medication/Allergy Home Medications: Aspirin [Aspirin 325 mg Tablet] 325 mg PO DAILY PRN #1 pkg 10/09/18 Isosorbide Mononitrate [Imdur 30 mg Tablet.er] 30 mg PO DAILY #30 tab.er.24h 10/09/18 Metoprolol Succinate [Toprol Xl] 12.5 mg PO DAILY #30 tab.er.24h 10/09/18 Rosuvastatin Calcium [Crestor 10 mg Tablet] 10 mg PO DAILY #30 tablet 10/09/18 Allergies/Adverse Reactions: codeine Allergy (Verified 10/09/18 16:29) erythromycin base Allergy (Verified 10/09/18 16:29) Review of Systems ROS unobtainable: Due to endotracheal tube Constitutional: ABSENT: fever(s), weakness Eyes: ABSENT: visual disturbances Ears: ABSENT: hearing changes Nose, Mouth, and Throat: ABSENT: sore throat Cardiovascular: PRESENT: chest pain Respiratory: ABSENT: cough, hemoptysis Gastrointestinal: PRESENT: nausea, vomiting Genitourinary: ABSENT: dysuria, hematuria Musculoskeletal: ABSENT: joint swelling Neurological: ABSENT: abnormal gait, abnormal speech, confusion, dizziness, focal weakness, syncope Physical Exam Vital Signs: Temp Pulse Resp BP Pulse Ox 21 H 151/125 H 98 01/28/19 17:02 01/28/19 17:02 01/28/19 17:02 General appearance: PRESENT: no acute distress Head exam: PRESENT: atraumatic Eye exam: PRESENT: PERRLA Mouth exam: PRESENT: moist, tongue midline Neck exam: ABSENT: carotid bruit, JVD, lymphadenopathy, thyromegaly Respiratory exam: PRESENT: decreased breath sounds Cardiovascular exam: PRESENT: RRR. ABSENT: diastolic murmur, rubs, systolic murmur GI/Abdominal exam: PRESENT: normal bowel sounds, soft. ABSENT: distended, guarding, mass, organolmegaly, rebound, tenderness Rectal exam: PRESENT: deferred Extremities exam: PRESENT: full ROM. ABSENT: calf tenderness, clubbing, pedal edema Neurological exam: PRESENT: alert, awake, oriented to person, oriented to place, oriented to time, oriented to situation, CN II-XII grossly intact. ABSENT: motor sensory deficit Psychiatric exam: PRESENT: appropriate affect, normal mood. ABSENT: homicidal ideation, suicidal ideation Results Laboratory Results: 01/28/19 15:00 01/28/19 15:00 01/28/19 01/28/19 15:00 15:00 WBC 10.1 RBC 4.20 Hgb 11.4 L Hct 35.3 L MCV 84 MCH 27.1 MCHC 32.3 RDW 16.5 H Plt Count 362 Seg Neutrophils % 68.9 Lymphocytes % 23.4 Monocytes % 5.9 Eosinophils % 1.0 Basophils % 0.8 Absolute Neutrophils 7.0 Absolute Lymphocytes 2.4 Absolute Monocytes 0.6 Absolute Eosinophils 0.1 Absolute Basophils 0.1 Sodium 140.1 Potassium 4.4 Chloride 100 Carbon Dioxide 28 Anion Gap 12 BUN 19 Creatinine 0.67 Est GFR ( Amer) > 60 Est GFR (Non-Af Amer) > 60 Glucose 91 Calcium 10.3 H Total Bilirubin 0.2 AST 31 ALT 35 Alkaline Phosphatase 80 Total Protein 7.7 Albumin 4.3 Lipase 125.2 01/28/19 15:00 CK-MB (CK-2) 1.32 Troponin I < 0.012 Impressions: Chest X-Ray 01/28/19 14:31 IMPRESSION: NO ACUTE RADIOGRAPHIC FINDING IN THE CHEST. Assessment and Plan - Diagnosis (1) Chest pain Is this a current diagnosis for this admission?: Yes Plan: 01/28/2019 patient going to be admitted for chest pain. Admission status will be observation. Plan to do the cardiac enzymes x3. Lipid panel tomorrow restart home medications. Start on aspirin and atorvastatin. Arrange for stress test tomorrow. GI prophylaxis DVT prophylaxis initiated. Placed on oxygen 2 L nasal cannula. To start on IV morphine 2 mg every 4 PRN for chest pain. (2) Coronary artery disease Is this a current diagnosis for this admission?: No Plan: 01/28/2019-patient has history of coronary artery disease recently have a stent placement in LAD and RCA on November 09 in [facility]. Came in with chest pain and now chest pain-free. (3) HTN (hypertension) Is this a current diagnosis for this admission?: No Plan: 01/28/2019-patient blood pressure in the emergency room is 151/125. With heart rate of 79. Plan to restart her home medications and also to start on hydralazine 10 mg IV every 6 as needed for systolic blood pressure more than 150. (4) Diabetes Qualifiers: Diabetes mellitus type: type 2 Is this a current diagnosis for this admission?: Yes Plan: 01/28/2019-patient has history of type 2 diabetes mellitus. Patient is on metformin at home. Plan to place the patient on insulin sliding scale before meals and at bedtime with sliding scale coverage. Dietary consult is going to be requested. To check for hemoglobin A1c tomorrow. - Time Time Spent with patient: 25-34 minutes Medications reviewed and adjusted accordingly: Yes Anticipated discharge: Home
[2019-01-28] MEDS ORDERED: HYDRALAZINE HCL INJ/PF 20 MG/1 ML SDV IV PRN (17:38)
[2019-01-28] MEDS ORDERED: MORPHINE SULFATE 10 MG/ML INJ IV PRN (17:38)
[2019-01-28] MEDS ORDERED: DEXTROSE 40% GEL 15 GM TUBE PO PRN ×2 (17:39)
[2019-01-28] MEDS ORDERED: DEXTROSE 50%-WATER 25 GM/50 ML DISP.SYRIN IV PRN ×2 (17:39)
[2019-01-28] MEDS ORDERED: GLUCAGON,HUMAN RECOMB 1 MG INJ IM PRN (17:39)
[2019-01-28] MEDS: CLOPIDOGREL BISULFATE 75 MG TABLET PO SCH (18:44)
[2019-01-28] MEDS: FAMOTIDINE 20 MG TABLET PO SCH ×2 (18:44→22:59)
[2019-01-28] MEDS: AMLODIPINE BESYLATE 10 MG TABLET PO SCH (18:45)
[2019-01-28] MEDS: ENOXAPARIN SODIUM INJ 40 MG/0.4 ML DISP.SYRIN SUBCUT SCH (18:51)
[2019-01-28] MEDS: INSULIN REG, HUMAN 100 UNIT/ML 3 ML VIAL (PYX) SUBCUT SCH ×2 (19:03→22:58)
[2019-01-28 19:19] LABS: TROPONIN I < 0.012 ng/mL
[2019-01-28] MEDS: GABAPENTIN 300 MG CAPSULE PO SCH (21:27)
[2019-01-28] MEDS: DOCUSATE SODIUM 100 MG/10 ML UDC PO SCH (21:28)
[2019-01-28] MEDS ORDERED: ATORVASTATIN CALCIUM 10 MG TABLET PO SCH (22:00)
[2019-01-28] MEDS ORDERED: MONTELUKAST SODIUM 10 MG TABLET PO SCH (22:00)
[2019-01-29 01:00] LABS: CREATINE KINASE MB 1.05 ng/mL (<4.55)
[2019-01-29 01:06] LABS: TROPONIN I < 0.012 ng/mL
[2019-01-29 06:57] LABS: ABSOLUTE BASOPHILS # (AUTO) 0.1 10^3/uL (0.0-0.2); ABSOLUTE EOSINOPHILS # (AUTO) 0.1 10^3/uL (0.0-0.6); ABSOLUTE LYMPHOCYTES (AUTO) 1.8 10^3/uL (0.5-4.7); ABSOLUTE MONOCYTES (AUTO) 0.6 10^3/uL (0.1-1.4); ABSOLUTE NEUT (AUTO) 5.4 10^3/uL (1.7-8.2); BASOPHILS % (AUTO) 0.9 % (0-2); EOSINOPHILS % (AUTO) 1.4 % (0-6); HEMATOCRIT 32.9 % (36.0-47.0); HEMOGLOBIN 10.6 g/dL (12.0-15.5); LYMPHOCYTES % (AUTO) 22.7 % (13-45); MEAN CORPUSCULAR HEMOGLOBIN 26.8 pg (27.0-33.4); MEAN CORPUSCULAR HGB CONC 32.1 g/dL (32.0-36.0); MEAN CORPUSCULAR VOLUME 84 fl (80-97); MONOCYTES % (AUTO) 7.5 % (3-13); PLATELET COUNT 296 10^3/uL (150-450); RED BLOOD COUNT 3.94 10^6/uL (3.72-5.28); RED CELL DISTRIBUTION WIDTH 16.6 % (11.5-14.0); SEGMENTED NEUTROPHILS % (AUTO) 67.5 % (42-78); TOTAL CELLS COUNTED % (AUTO) 100 %
[2019-01-29 07:21] LABS: ALANINE AMINOTRANSFERASE 28 U/L (9-52); ALBUMIN 3.7 g/dL (3.5-5.0); ALKALINE PHOSPHATASE 63 U/L (38-126); ANION GAP 10 (5-19); ASPARTATE AMINO TRANSFERASE 27 U/L (14-36); BILIRUBIN,DIRECT 0.3 mg/dL (0.0-0.4); BILIRUBIN,TOTAL 0.3 mg/dL (0.2-1.3); BLOOD UREA NITROGEN 16 mg/dL (7-20); CALCIUM 9.9 mg/dL (8.4-10.2); CARBON DIOXIDE 26 mmol/L (22-30); CHLORIDE 105 mmol/L (98-107); CHOLESTEROL 114.87 mg/dL (0-200); CREATINE KINASE 116 U/L (30-135); GLUCOSE 88 mg/dL (75-110); POTASSIUM 4.7 mmol/L (3.6-5.0); SODIUM 141.4 mmol/L (137-145); TOTAL PROTEIN 6.7 g/dL (6.3-8.2); TRIGLYCERIDES 109 mg/dL (<150)
[2019-01-29 07:32] LABS: DIRECT LDL 59 mg/dL (<100)
[2019-01-29 07:36] LABS: CREATINE KINASE MB 0.72 ng/mL (<4.55)
[2019-01-29 07:57] LABS: TROPONIN I < 0.012 ng/mL
[2019-01-29 07:58] LABS: NT PRO BNP 26 pg/mL (5-900)
[2019-01-29 08:30] LABS: URINE AMPHETAMINES SCREEN NEGATIVE; URINE BARBITURATES SCREEN NEGATIVE; URINE BENZODIAZEPINES SCREEN NEGATIVE; URINE COCAINE SCREEN NEGATIVE; URINE MARIJUANA (THC) SCREEN NEGATIVE; URINE METHADONE SCREEN NEGATIVE; URINE PHENCYCLIDINE SCREEN NEGATIVE
[2019-01-29] MEDS: INSULIN REG, HUMAN 100 UNIT/ML 3 ML VIAL (PYX) SUBCUT SCH (08:50)
[2019-01-29] MEDS: CLOPIDOGREL BISULFATE 75 MG TABLET PO SCH (11:22)
[2019-01-29] MEDS: GABAPENTIN 300 MG CAPSULE PO SCH (11:22)
[2019-01-29] MEDS: FAMOTIDINE 20 MG TABLET PO SCH (11:23)
[2019-01-29] MEDS: AMLODIPINE BESYLATE 10 MG TABLET PO SCH (11:23)
[2019-01-29] MEDS: ENOXAPARIN SODIUM INJ 40 MG/0.4 ML DISP.SYRIN SUBCUT SCH (11:25)
[2019-01-29] MEDS: DOCUSATE SODIUM 100 MG/10 ML UDC PO SCH (11:26)
--- NOTE | 2019-01-29 11:27 | PDOC DISCHARGE SUMMARY ---
General - Admit/Disc Date/PCP Admission Date/Primary Care Provider: 01/28/19 17:01 HENRIK JEFFERSON MD Discharge Date: 01/29/19 - Discharge Diagnosis (1) Chest pain Is this a current diagnosis for this admission?: Yes Summary: 68-year-old female with history of coronary artery disease with stent placement in LAD and RCA came to the emergency room with chest pains. Initial EKG is negative cardiac enzymes are negative. This test was arranged for this morning but she does not want to do the stress test that was to be read by Dr. Hannon. Unfortunately we do not have any other drapery seamstress available to read the stress test until next week. Agrees to see [facility] at 3 PM tomorrow the [place] office. She understood the risks of going home with the stress test. She verbalized her response. (2) Coronary artery disease Is this a current diagnosis for this admission?: No Summary: 01/28/2019-patient has history of coronary artery disease recently have a stent placement in LAD and RCA on November 09 in [facility]. Came in with chest pain and now chest pain-free. 01/29/2019-patient has history of coronary artery disease status post stents placement in LAD and RCA. Cardiac enzymes or EKG negative. Has an appointment with [facility] at 3 PM tomorrow in [place] office. (3) HTN (hypertension) Is this a current diagnosis for this admission?: No Summary: 01/28/2019-patient blood pressure in the emergency room is 151/125. With heart rate of 79. Plan to restart her home medications and also to start on hydralazine 10 mg IV every 6 as needed for systolic blood pressure more than 150. 01/29/2019-patient blood pressure today is 102/54. Patient is asymptomatic. patient is advised to continue home medications upon discharge. (4) Diabetes Is this a current diagnosis for this admission?: Yes Summary: 01/28/2019-patient has history of type 2 diabetes mellitus. Patient is on metformin at home. Plan to place the patient on insulin sliding scale before meals and at bedtime with sliding scale coverage. Dietary consult is going to be requested. To check for hemoglobin A1c tomorrow. 01/29/2019-patient has history of type 2 diabetes mellitus. She receives takes metformin at home. Which was on hold. He has she is on insulin sliding scale before meals and at bedtime. Her blood sugar this morning is 88. Stable. Patient is advised to resume her home medications upon discharge. - Additional Information Resuscitation Status: Full Code Discharge Diet: Cardiac, Diabetic Discharge Activity: Activity As Tolerated Home Medications: Amlodipine Besylate/Benazepril [Amlodipine-Benazepril 5-20 mg] 1 cap PO DAILY 01/28/19 Aspirin [Aspirin 81 mg Chewable Tablet] 81 mg PO DAILY 01/28/19 Fluticasone/Salmeterol [Advair 250-50 Diskus 14 Dose/Diskus] 1 inh IH Q12 01/28/19 Gabapentin [Neurontin] 1,200 mg PO QPM 01/28/19 Gabapentin [Neurontin] 600 mg PO QAM 01/28/19 Melatonin 10 mg PO QHS 01/28/19 Metformin HCl [Glucophage 500 mg Tablet] 500 mg PO BIDACBS 01/28/19 Metoprolol Succinate [Toprol Xl 25 mg Tab.sr] 12.5 mg PO DAILY 01/28/19 Montelukast Sodium [Singulair 10 mg Tablet] 10 mg PO QHS 01/28/19 Nitroglycerin [Nitrolingual] 1 spray TL Q5MP PRN 01/28/19 Rosuvastatin Calcium [Crestor 10 mg Tablet] 10 mg PO QHS 01/28/19 History of Present Illness History of Present Illness: EDUARD MCMAHON is a 68 year old female with history of coronary artery disease status post stent placement in LAD and RCA in November 09 this year, hypertension, hyperlipidemia, diabetes mellitus, COPD came to the emergency room with complaints of chest pain since last Monday. Patient complaining of nausea and vomiting along with chest pains. Also complaining of increased warmth. Decided to came to the emergency room today. At the time of my examination pat ient is chest pain-free. Troponins EKG came back negative. Physical Exam Vital Signs: Temp Pulse Resp BP Pulse Ox 98.8 F 79 15 118/64 94 01/29/19 08:11 01/29/19 08:11 01/29/19 08:11 01/29/19 08:11 01/29/19 08:11 Intake & Output 01/28/19 01/29/19 01/30/19 06:59 06:59 06:59 Intake Total 320 Balance 320 Weight 76.5 kg General appearance: PRESENT: no acute distress Head exam: PRESENT: atraumatic Eye exam: PRESENT: PERRLA Mouth exam: PRESENT: moist, tongue midline Teeth exam: PRESENT: poor dentation Neck exam: ABSENT: carotid bruit, JVD, lymphadenopathy, thyromegaly Respiratory exam: PRESENT: decreased breath sounds Cardiovascular exam: PRESENT: RRR. ABSENT: diastolic murmur, rubs, systolic murmur GI/Abdominal exam: PRESENT: normal bowel sounds, soft. ABSENT: distended, guarding, mass, organolmegaly, rebound, tenderness Rectal exam: PRESENT: deferred Extremities exam: PRESENT: full ROM. ABSENT: calf tenderness, clubbing, pedal edema Neurological exam: PRESENT: alert, awake, oriented to person, oriented to place, oriented to time, oriented to situation, CN II-XII grossly intact. ABSENT: motor sensory deficit Psychiatric exam: PRESENT: appropriate affect, normal mood. ABSENT: homicidal ideation, suicidal ideation Results Laboratory Results: 01/29/19 06:00 01/29/19 06:00 01/28/19 01/28/19 01/29/19 15:00 15:00 06:00 WBC 10.1 RBC 4.20 Hgb 11.4 L Hct 35.3 L MCV 84 MCH 27.1 MCHC 32.3 RDW 16.5 H Plt Count 362 Seg Neutrophils % 68.9 Lymphocytes % 23.4 Monocytes % 5.9 Eosinophils % 1.0 Basophils % 0.8 Absolute Neutrophils 7.0 Absolute Lymphocytes 2.4 Absolute Monocytes 0.6 Absolute Eosinophils 0.1 Absolute Basophils 0.1 Sodium 140.1 141.4 Potassium 4.4 4.7 Chloride 100 105 Carbon Dioxide 28 26 Anion Gap 12 10 BUN 19 16 Creatinine 0.67 0.53 Est GFR ( Amer) > 60 > 60 Est GFR (Non-Af Amer) > 60 > 60 Glucose 91 88 Calcium 10.3 H 9.9 Magnesium 2.3 Total Bilirubin 0.2 0.3 AST 31 27 ALT 35 28 Alkaline Phosphatase 80 63 Total Protein 7.7 6.7 Albumin 4.3 3.7 Triglycerides 109 Cholesterol 114.87 LDL Cholesterol Direct 59 VLDL Cholesterol 22.0 HDL Cholesterol 46 Lipase 125.2 TSH 01/29/19 01/29/19 06:00 06:00 WBC 8.0 RBC 3.94 Hgb 10.6 L Hct 32.9 L MCV 84 MCH 26.8 L MCHC 32.1 RDW 16.6 H Plt Count 296 Seg Neutrophils % 67.5 Lymphocytes % 22.7 Monocytes % 7.5 Eosinophils % 1.4 Basophils % 0.9 Absolute Neutrophils 5.4 Absolute Lymphocytes 1.8 Absolute Monocytes 0.6 Absolute Eosinophils 0.1 Absolute Basophils 0.1 Sodium Potassium Chloride Carbon Dioxide Anion Gap BUN Creatinine Est GFR ( Amer) Est GFR (Non-Af Amer) Glucose Calcium Magnesium Total Bilirubin AST ALT Alkaline Phosphatase Total Protein Albumin Triglycerides Cholesterol LDL Cholesterol Direct VLDL Cholesterol HDL Cholesterol Lipase TSH 1.45 01/28/19 01/28/19 01/28/19 15:00 18:00 18:00 Creatine Kinase 141 H CK-MB (CK-2) 1.32 1.20 Troponin I < 0.012 < 0.012 NT-Pro-B Natriuret Pep 01/29/19 01/29/19 01/29/19 00:07 00:07 06:00 Creatine Kinase 128 116 CK-MB (CK-2) 1.05 Troponin I < 0.012 NT-Pro-B Natriuret Pep 01/29/19 06:00 Creatine Kinase CK-MB (CK-2) 0.72 Troponin I < 0.012 NT-Pro-B Natriuret Pep 26 Impressions: Chest X-Ray 01/28/19 14:31 IMPRESSION: NO ACUTE RADIOGRAPHIC FINDING IN THE CHEST. Qualifiers - * PATIENT BEING DISCHARGED WITH ANY OF THE FOLLOWING DIAGNOSIS: No VTE patient discharged on overlapping Therapy?: No Acute Heart Failure Is this a Heart Failure Patient?: No Plan Discharge Plan: Patient is going home today. Time Spent: Greater than 30 Minutes
[2019-01-29 11:55] VITALS: BP 102/54
--- NOTE | 2019-01-29 17:44 | EKG REPORT ---
SEVERITY:- NORMAL ECG - SINUS RHYTHM : Confirmed by: Shanae Hanonn MD 29-Jan-2019 17:42:23
== END 2019-01-29 12:32 | disposition home or self-care (01) ==
LOC: ER 13:57 → EH 17:01 → INTOOBSV 17:01 → 5 20:55
PROVIDERS: ADMIT Internal Medicine; ATTEND Internal Medicine
DX: R07.9 Chest pain, unspecified (principal); I25.10 Atherosclerotic heart disease of native coronary artery without angina pectoris; Z95.5 Presence of coronary angioplasty implant and graft; I10 Essential (primary) hypertension; E78.5 Hyperlipidemia, unspecified; E11.9 Type 2 diabetes mellitus without complications; J44.9 Chronic obstructive pulmonary disease, unspecified; Z90.710 Acquired absence of both cervix and uterus; Z87.891 Personal history of nicotine dependence; Z82.49 Family history of ischemic heart disease and other diseases of the circulatory system; Z79.82 Long term (current) use of aspirin; Z79.899 Other long term (current) drug therapy; Z88.1 Allergy status to other antibiotic agents; Z88.8 Allergy status to other drugs, medicaments and biological substances
CPT/HCPCS: 93005 ×2; 99285; 36415 ×2; 82553 ×2; 82962 ×2; 82550 ×2; 83690; 83735; 84443; 85025 ×2; 80053 ×2; 84484 ×2; 80307; 83036; 80061; 83880; 71046; 93010; G0378 ×3; A9270 ×12; J1650 ×2

== ENCOUNTER 2019-03-16 09:33 | Emergency (ER) | payer MEDICARE, OTHER ==
--- NOTE | 2019-03-16 10:05 | ER Document Report ---
ED Medical Screen (RME) - General Chief Complaint: Pain With Urination Stated Complaint: URINARY PROBLEMS Time Seen by Provider: 03/16/19 09:51 Primary Care Provider: HENRIK JEFFERSON MD [Primary Care Provider] - Follow up as needed Mode of Arrival: Ambulatory Information source: Patient Notes: Patient is a 68-year-old female presented to the emergency department chief complaint of dysuria, hematuria and right-sided back pain that started last night. Patient reports it feels like she has a urinary tract infection. She denies any fever but reports chills. She denies any nausea or vomiting. She does state that she took gabapentin this morning which has helped with her pain however she reports that the pain went from her low right back up into her right flank last night. Patient does take Plavix due to stent placement Exam: Mild right CVA tenderness. I have greeted and performed a rapid initial assessment of this patient. A comprehensive ED assessment and evaluation of the patient, analysis of test results and completion of the medical decision making process will be conducted by additional ED providers. I have specifically instructed the patient or family members with the patient to immediately return to any nursing staff should anything change in the patient's condition or with their chief complaint. This medical record was dictated with voice recognizing software. There may be grammatical, syntax errors that are unintended. TRAVEL OUTSIDE OF THE [place] IN LAST 30 DAYS: No - Related Data Allergies/Adverse Reactions: codeine Allergy (Verified 03/16/19 09:33) erythromycin base Allergy (Verified 03/16/19 09:33) Past Medical History - Past Medical History Cardiac Medical History: Reports: Hx Hypercholesterolemia, Hx Hypertension Pulmonary Medical History: Reports: Hx COPD Endocrine Medical History: Reports: Hx Diabetes Mellitus Type 2 Renal/ Medical History: Denies: Hx Peritoneal Dialysis Past Surgical History: Reports: Hx Abdominal Surgery - obstruction, Hx Cardiac Surgery - stents x2, Hx Hysterectomy, Hx Orthopedic Surgery - carpal tunnel Physical Exam - Vital signs Vitals: Temp Pulse Resp BP Pulse Ox 99 F 87 18 149/79 H 97 03/16/19 09:36 03/16/19 09:36 03/16/19 09:36 03/16/19 09:36 03/16/19 09:36 Course - Vital Signs Vital signs: Temp Pulse Resp BP Pulse Ox 99 F 87 18 149/79 H 97 03/16/19 09:36 03/16/19 09:36 03/16/19 09:36 03/16/19 09:36 03/16/19 09:36 Doctor's Discharge - Discharge Referrals: HENRIK JEFFERSON MD [Primary Care Provider] - Follow up as needed
[2019-03-16 10:36] LABS: ABSOLUTE BASOPHILS # (AUTO) 0.1 10^3/uL (0.0-0.2); ABSOLUTE EOSINOPHILS # (AUTO) 0.1 10^3/uL (0.0-0.6); ABSOLUTE LYMPHOCYTES (AUTO) 1.8 10^3/uL (0.5-4.7); ABSOLUTE MONOCYTES (AUTO) 0.6 10^3/uL (0.1-1.4); ABSOLUTE NEUT (AUTO) 8.3 10^3/uL (1.7-8.2); BASOPHILS % (AUTO) 0.6 % (0-2); EOSINOPHILS % (AUTO) 0.5 % (0-6); HEMATOCRIT 35.7 % (36.0-47.0); HEMOGLOBIN 11.6 g/dL (12.0-15.5); LYMPHOCYTES % (AUTO) 16.3 % (13-45); MEAN CORPUSCULAR HEMOGLOBIN 27.3 pg (27.0-33.4); MEAN CORPUSCULAR HGB CONC 32.6 g/dL (32.0-36.0); MEAN CORPUSCULAR VOLUME 84 fl (80-97); MONOCYTES % (AUTO) 5.5 % (3-13); PLATELET COUNT 322 10^3/uL (150-450); RED BLOOD COUNT 4.27 10^6/uL (3.72-5.28); RED CELL DISTRIBUTION WIDTH 16.8 % (11.5-14.0); SEGMENTED NEUTROPHILS % (AUTO) 77.1 % (42-78); TOTAL CELLS COUNTED % (AUTO) 100 %; WHITE BLOOD COUNT 10.8 10^3/uL (4.0-10.5)
[2019-03-16 10:48] LABS: APPEARANCE,URINE SLIGHTLY-CLOUDY; BILIRUBIN,URINE NEGATIVE (NEGATIVE); COLOR,URINE YELLOW; GLUCOSE, URINE NEGATIVE (NEGATIVE); KETONES,URINE NEGATIVE (NEGATIVE); LEUKOCYTE ESTERASE,URINE SMALL (NEGATIVE); NITRITE,URINE NEGATIVE (NEGATIVE); PROTEIN,URINE NEGATIVE (NEGATIVE); URINE SPECIFIC GRAVITY 1.006; UROBILINOGEN,URINE NEGATIVE mg/dL (<2.0)
[2019-03-16 10:50] LABS: ALANINE AMINOTRANSFERASE 27 U/L (9-52); ALBUMIN 4.5 g/dL (3.5-5.0); ALKALINE PHOSPHATASE 78 U/L (38-126); ANION GAP 9 (5-19); ASPARTATE AMINO TRANSFERASE 24 U/L (14-36); BILIRUBIN,DIRECT 0.2 mg/dL (0.0-0.4); BILIRUBIN,TOTAL 0.4 mg/dL (0.2-1.3); BLOOD UREA NITROGEN 17 mg/dL (7-20); CALCIUM 10.3 mg/dL (8.4-10.2); CARBON DIOXIDE 29 mmol/L (22-30); CHLORIDE 101 mmol/L (98-107); GLUCOSE 147 mg/dL (75-110); POTASSIUM 4.2 mmol/L (3.6-5.0); SODIUM 138.9 mmol/L (137-145); TOTAL PROTEIN 7.5 g/dL (6.3-8.2)
[2019-03-16] MEDS ORDERED: CEFTRIAXONE INJ 1000 MG VIAL IM ONE (11:16)
[2019-03-16] MEDS ORDERED: LIDOCAINE 1% INJ-PF (10 MG/ML) 30 ML SDV IM ONE (11:16)
--- NOTE | 2019-03-16 11:21 | ER Document Report ---
HPI - HPI Time Seen by Provider: 03/16/19 09:51 Pain Level: 3 Notes: Patient is a 68-year-old female with a history of coronary artery disease status post stent placement in October, hypertension, diabetes, fibromyalgia who presents complaining of urinary burning, urgency, frequency that began last evening. Patient states that she did have hematuria yesterday which is since cleared up. Patient also states that she has had some bilateral flank pain, but resolved with her gabapentin. Patient states that she had a urinary infection previously and this feels similar. She is otherwise able to eat and drink without difficulty. She is urinating normally. Denies any headache, fever, URI, sore throat, chest pain, palpitations, syncope, cough, shortness of breath, wheeze, dyspnea, abdominal pain, nausea/vomiting/diarrhea, loss of control of bowel or bladder, numbness/tingling, saddle anesthesia, muscle paralysis/weakness, or rash. - ROS Systems Reviewed and Negative: Yes All other systems reviewed and negative - DERM Skin Color: Normal, [place] Past Medical History - General Information source: Patient - Social History Smoking Status: Former Smoker Frequency of alcohol use: None Drug Abuse: None Family History: Reviewed & Not Pertinent Patient has suicidal ideation: No Patient has homicidal ideation: No - Past Medical History Cardiac Medical History: Reports: Hx Heart Attack, Hx Hypercholesterolemia, Hx H ypertension Pulmonary Medical History: Reports: Hx COPD Endocrine Medical History: Reports: Hx Diabetes Mellitus Type 2 Renal/ Medical History: Denies: Hx Peritoneal Dialysis Musculoskeletal Medical History: Reports Hx Arthritis Past Surgical History: Reports: Hx Abdominal Surgery - obstruction, Hx Cardiac Surgery - stents x2, Hx Hysterectomy, Hx Orthopedic Surgery - carpal tunnel Vertical Provider Document - CONSTITUTIONAL Agree With Documented VS: Yes Notes: PHYSICAL EXAMINATION: GENERAL: Well-appearing, well-nourished and in no acute distress. LUNGS: Breath sounds clear to auscultation bilaterally and equal. No wheezes rales or rhonchi. HEART: Regular rate and rhythm without murmurs, rubs, gallops. ABDOMEN: Soft, nontender, nondistended abdomen. No guarding, no rebound. Normal bowel sounds present. No CVA tenderness bilaterally. Musculoskeletal: FROM to passive/active. Strength 5+/5. Extremities: No cyanosis, clubbing, or edema b/l. Peripheral pulses 2+. Capillary refill less than 3 seconds. NEUROLOGICAL: Normal speech, normal gait. PSYCH: Normal mood, normal affect. SKIN: Warm, Dry, normal turgor, no rashes or lesions noted. - INFECTION CONTROL TRAVEL OUTSIDE OF THE [place] IN LAST 30 DAYS: No Course - Re-evaluation Re-evalutation: 03/16/19 11:18 Patient is an afebrile, well-hydrated, 68-year-old female who presents with dysuria and suspected UTI. Vitals are acceptable without significant tachycardia, tachypnea, or hypoxia. PE is otherwise unremarkable. Patient's abdomen is soft and nontender. See urinalysis results. Urine culture is pending. Patient requested a shot of the medication to help start things off so Rocephin was ordered. No further work-up warranted at this time. Patient is nontoxic-appearing and is able to tolerate p.o. without difficulty. Low suspicion/risk for acute appendicitis, bowel obstruction, acute cholecystitis, acute cholangitis, perforated diverticulitis, incarcerated hernia, pancreatitis, perforated ulcer, peritonitis, sepsis, pelvic inflammatory disease, tubo-ovarian abscess, ovarian torsion, or other systemic emergent condition at this time. Patient is aware that her condition can change from initial presentation and she needs to monitor symptoms closely and seek medical attention if any acute changes. I will send her home with prescription for Keflex and Pyridium. Conservative measures otherwise for symptoms. Recheck with your PCM and 2 to 3 days. Return to the ED with any worsening/concerning symptoms otherwise as reviewed in discharge. Patient is in agreement. - Vital Signs Vital signs: Temp Pulse Resp BP Pulse Ox 99 F 87 18 149/79 H 97 03/16/19 09:36 03/16/19 09:36 03/16/19 09:36 03/16/19 09:36 03/16/19 09:36 - Laboratory Result Diagrams: 03/16/19 10:20 03/16/19 10:20 Laboratory results interpreted by me: 03/16/19 03/16/19 03/16/19 10:20 10:20 10:20 WBC 10.8 H Hgb 11.6 L Hct 35.7 L RDW 16.8 H Absolute Neutrophils 8.3 H Glucose 147 H Calcium 10.3 H Urine Blood LARGE H Ur Leukocyte Esterase SMALL H Urine Ascorbic Acid 20 H Discharge - Discharge Clinical Impression: Dysuria, Acute UTI (urinary tract infection) Condition: Stable Disposition: HOME, SELF-CARE Instructions: Cephalexin ([facility]), Urinary Tract Infection ([facility]) Additional Instructions: Push fluids (i.e. water) Proper hygenic technique Keep the skin clean Tylenol/ibuprofen as needed Take medications as directed F/u with your PCM in 2-3 days for a recheck Consider consult with a Urologist for ongoing/worsening symptoms. Return to the ED with any worsening symptoms and/or development of fever, headache, chest pain, palpitations, syncope, shortness of breath, trouble breathing, abdominal pain, n/v/d, blood in stool/urine, loss of control of bowel/bladder, urinary retention, or other worsening symptoms that are concerni ng to you. Prescriptions: Cephalexin Monohydrate [Keflex 500 mg Capsule] 500 mg PO TID #21 capsule Phenazopyridine HCl [Pyridium 200 mg Tablet] 200 mg PO TID #12 tablet Forms: Elevated Blood Pressure Referrals: HENRIK JEFFERSON MD [COMMUNITY BASED STAFF] - 03/19/19
[2019-03-16 12:07] VITALS: BP 106/67
== END 2019-03-16 12:20 | disposition home or self-care (01) ==
LOC: ER 09:33
DX: N39.0 Urinary tract infection, site not specified (principal); R30.0 Dysuria; E78.00 Pure hypercholesterolemia, unspecified; I10 Essential (primary) hypertension; E11.9 Type 2 diabetes mellitus without complications; I25.2 Old myocardial infarction
CPT/HCPCS: 99283; 96372; 36415; 87086; 85025; 87088; 80053; 81001; 87186; J3490; J0696

== ENCOUNTER 2019-10-29 12:56 | Emergency (ER) | payer MEDICARE, OTHER ==
[2019-10-29] MEDS ORDERED: ASPIRIN 81 MG TABLET, CHEWABLE PO ONE (13:26)
--- NOTE | 2019-10-29 13:26 | ER Document Report ---
ED Medical Screen (RME) - General Chief Complaint: Chest Pain Stated Complaint: CHEST PAIN Time Seen by Provider: 10/29/19 13:22 Primary Care Provider: EDUARD ALVA PA-C [Primary Care Provider] - Follow up as needed Mode of Arrival: Ambulatory Information source: Patient Notes: 69-year-old female presented to ED for complaint of chest pain weakness of breath on and off for about 2 weeks. She states she has been having a lot of pressure today. She states she does have a history of 2 coronary stents. She states the pain gets worse as the day progresses and when she eats something the pain gets worse. She states she had gastric coronary stents placed last year. She is alert oriented respirations regular nonlabored speaking in full sentences at this time. Lungs clear to auscultation. I have greeted and performed a rapid initial assessment of this patient. A comprehensive ED assessment and evaluation of the patient, analysis of test results and completion of medical decision making process will be conducted by an additional ED providers. TRAVEL OUTSIDE OF THE [place] IN LAST 30 DAYS: No - Related Data Allergies/Adverse Reactions: codeine Allergy (Verified 10/29/19 13:22) erythromycin base Allergy (Verified 10/29/19 13:22) Past Medical History - Past Medical History Cardiac Medical History: Reports: Hx Heart Attack, Hx Hypercholesterolemia, Hx Hypertension Pulmonary Medical History: Reports: Hx COPD Endocrine Medical History: Reports: Hx Diabetes Mellitus Type 2 Renal/ Medical History: Denies: Hx Peritoneal Dialysis Musculoskeltal Medical History: Reports Hx Arthritis Past Surgical History: Reports: Hx Abdominal Surgery - obstruction, Hx Cardiac Surgery - stents x2, Hx Hysterectomy, Hx Orthopedic Surgery - carpal tunnel Physical Exam - Vital signs Vitals: Temp Pulse Resp BP Pulse Ox 98.6 F 98 20 95/71 L 95 10/29/19 13:12 10/29/19 13:12 10/29/19 13:12 10/29/19 13:12 10/29/19 13:12 Course - Vital Signs Vital signs: Temp Pulse Resp BP Pulse Ox 98.6 F 98 20 95/71 L 95 10/29/19 13:12 10/29/19 13:12 10/29/19 13:12 10/29/19 13:12 10/29/19 13:12 Doctor's Discharge - Discharge Referrals: EDUARD ALVA PA-C [Primary Care Provider] - Follow up as needed
--- NOTE | 2019-10-29 13:59 | RADIOLOGY REPORT (SQ) ---
EXAM DESCRIPTION: CHEST 2 VIEWS COMPLETED DATE/TIME: 10/29/2019 1:51 pm REASON FOR STUDY: chest pain and pressure COMPARISON: 01/28/2019 EXAM PARAMETERS: NUMBER OF VIEWS: two views TECHNIQUE: Digital Frontal and Lateral radiographic views of the chest acquired. RADIATION DOSE: NA LIMITATIONS: none FINDINGS: LUNGS AND PLEURA: No opacities, masses or pneumothorax. No pleural effusion. MEDIASTINUM AND HILAR STRUCTURES: No masses or contour abnormalities. HEART AND VASCULAR STRUCTURES: Heart normal size. No evidence for failure. BONES: No acute findings. HARDWARE: None in the chest. OTHER: No other significant finding. IMPRESSION: NO ACUTE RADIOGRAPHIC FINDING IN THE CHEST. TECHNICAL DOCUMENTATION: JOB ID: [id number] [employer]- All Rights Reserved Reading location - IP/workstation name: [email or web address]
[2019-10-29 15:21] LABS: ABSOLUTE BASOPHILS # (AUTO) 0.1 10^3/uL (0.0-0.2); ABSOLUTE EOSINOPHILS # (AUTO) 0.1 10^3/uL (0.0-0.6); ABSOLUTE LYMPHOCYTES (AUTO) 2.2 10^3/uL (0.5-4.7); ABSOLUTE MONOCYTES (AUTO) 0.6 10^3/uL (0.1-1.4); ABSOLUTE NEUT (AUTO) 6.1 10^3/uL (1.7-8.2); BASOPHILS % (AUTO) 0.7 % (0-2); EOSINOPHILS % (AUTO) 1.5 % (0-6); HEMATOCRIT 34.6 % (36.0-47.0); HEMOGLOBIN 11.6 g/dL (12.0-15.5); LYMPHOCYTES % (AUTO) 24.1 % (13-45); MEAN CORPUSCULAR HGB CONC 33.6 g/dL (32.0-36.0); MEAN CORPUSCULAR VOLUME 86 fl (80-97); MONOCYTES % (AUTO) 6.6 % (3-13); PLATELET COUNT 268 10^3/uL (150-450); RED BLOOD COUNT 4.01 10^6/uL (3.72-5.28); RED CELL DISTRIBUTION WIDTH 15.7 % (11.5-14.0); SEGMENTED NEUTROPHILS % (AUTO) 67.1 % (42-78); TOTAL CELLS COUNTED % (AUTO) 100 %; WHITE BLOOD COUNT 9.1 10^3/uL (4.0-10.5)
[2019-10-29 15:40] LABS: ALBUMIN 4.1 g/dL (3.5-5.0); ALKALINE PHOSPHATASE 84 U/L (38-126); ANION GAP 11 (5-19); ASPARTATE AMINO TRANSFERASE 26 U/L (14-36); BILIRUBIN,DIRECT 0.3 mg/dL (0.0-0.4); BILIRUBIN,TOTAL 0.3 mg/dL (0.2-1.3); BLOOD UREA NITROGEN 17 mg/dL (7-20); CALCIUM 9.7 mg/dL (8.4-10.2); CARBON DIOXIDE 28 mmol/L (22-30); CHLORIDE 102 mmol/L (98-107); GLUCOSE 91 mg/dL (75-110); POTASSIUM 4.1 mmol/L (3.6-5.0); TOTAL PROTEIN 7.2 g/dL (6.3-8.2)
--- NOTE | 2019-10-29 16:20 | EKG REPORT ---
SEVERITY:- NORMAL ECG - SINUS RHYTHM : Confirmed by: Shanae Hannon MD 29-Oct-2019 16:18:22
--- NOTE | 2019-10-29 17:27 | ER Document Report ---
ED General - General Chief Complaint: Chest Pain Stated Complaint: CHEST PAIN Time Seen by Provider: 10/29/19 13:22 Primary Care Provider: EDUARD ALVA PA-C [Primary Care Provider] - Follow up as needed Mode of Arrival: Ambulatory Information source: Patient Notes: 69-year-old black female arrives with chief complaint of 2-week history of on and off reflux problems and pain in her epigastric area after she eats food. She has a history of GERD in the past which resolved on a little small pill around 2 years ago. Also as November 13 patient had angina chest pains and was sent for a catheterization with 2 stents. Patient takes a statin Plavix B12 vitamin D3 a statin metoprolol and reports for the past several weeks she has been having dental work at the dental clinic and had a deep cleaning last week and was on antibiotics around 2 weeks ago. Patient was taken amoxicillin at the time and wears a partial upper palate.. She is scheduled for 2 upper teeth to be extracted next week. She reports she is having some periodic pains anterior jennifer st that radiates to both arms and into her right neck and jaw. She reports these pains are reproducible if she pushes on her right distal sternum. Patient is out of her Advair as well. TRAVEL OUTSIDE OF THE [place] IN LAST 30 DAYS: No - HPI Onset: Other - And off chest pain for 2 weeks that is worse with food intake Onset/Duration: Sudden Quality of pain: Achy Severity: Mild Pain Level: 1 Associated symptoms: None Exacerbated by: Food Similar symptoms previously: Yes Recently seen / treated by doctor: No - Related Data Allergies/Adverse Reactions: codeine Allergy (Verified 10/29/19 13:22) erythromycin base Allergy (Verified 10/29/19 13:22) Past Medical History - General Information source: Patient - Social History Smoking Status: Former Smoker Cigarette use (# per day): No Chew tobacco use (# tins/day): No Smoking Education Provided: No Frequency of alcohol use: None Drug Abuse: None Lives with: Family Family History: Reviewed & Not Pertinent Patient has suicidal ideation: No Patient has homicidal ideation: No - Past Medical History Cardiac Medical History: Reports: Hx Heart Attack, Hx Hypercholesterolemia, Hx Hypertension Pulmonary Medical History: Reports: Hx COPD Endocrine Medical History: Reports: Hx Diabetes Mellitus Type 2 Renal/ Medical History: Denies: Hx Peritoneal Dialysis Musculoskeletal Medical History: Reports Hx Arthritis Past Surgical History: Reports: Hx Abdominal Surgery - obstruction, Hx Cardiac Surgery - stents x2, Hx Hysterectomy, Hx Orthopedic Surgery - carpal tunnel Review of Systems - Review of Systems Constitutional: No symptoms reported EENT: No symptoms reported, Other - Right upper jaw pain; patient scheduled for dental extraction and is status post amoxicillin for 10 days Cardiovascular: See HPI, Chest pain Respiratory: No symptoms reported Gastrointestinal: Other - Pain on swallowing food around epigastric area Genitourinary: No symptoms reported Female Genitourinary: No symptoms reported Musculoskeletal: No symptoms reported Skin: No symptoms reported Hematologic/Lymphatic: No symptoms reported Neurological/Psychological: No symptoms reported Physical Exam - Vital signs Vitals: Temp Pulse Resp BP Pulse Ox 98.6 F 98 20 95/71 L 95 10/29/19 13:12 10/29/19 13:12 10/29/19 13:12 10/29/19 13:12 10/29/19 13:12 Interpretation: Hypotensive - HEENT Head: Normocephalic Eyes: Normal Conjunctiva: Normal Cornea: Normal Extraocular movements intact: Yes Eyelashes: Normal Pupils: PERRL Mouth/Lips: Other - Upper plate the right upper gumline with no obvious erosions Mucous membranes: Normal Neck: Normal - Respiratory Respiratory status: No respiratory distress Chest status: Nontender Breath sounds: Normal Chest palpation: Normal - Cardiovascular Rhythm: Regular Heart sounds: Normal auscultation Murmur: No Friction rub: No Arpita's crunch: No - Abdominal Inspection: Normal Distension: No distension Bowel sounds: Normal Tenderness: Tender - Tenderness around lower abdominal adipose where she has been injecting with Victoza patient reports she gets small firm nodules under skin after these injections once weekly - Back Back: Normal - Extremities General upper extremity: Normal inspection General lower extremity: Normal inspection - Neurological Neuro grossly intact: Yes Cognition: Normal Orientation: AAOx4 Man Coma Scale Eye Opening: Spontaneous Dana Coma Scale Verbal: Oriented Dana Coma Scale Motor: Obeys Commands Dana Coma Scale Total: 15 Speech: Normal Cranial nerves: Normal Cerebellar coordination: Normal - Psychological Associated symptoms: Normal affect - Skin Skin Temperature: Warm Skin Moisture: Dry Course - Vital Signs Vital signs: Temp Pulse Resp BP Pulse Ox 98.6 F 98 20 95/71 L 95 10/29/19 13:12 10/29/19 13:12 10/29/19 13:12 10/29/19 13:12 10/29/19 13:12 - Laboratory Result Diagrams: 10/29/19 14:40 10/29/19 14:40 Laboratory results interpreted by me: 10/29/19 14:40 Hgb 11.6 L Hct 34.6 L RDW 15.7 H Discharge - Discharge Clinical Impression: Atypical chest pain, Dental disease, Angina at rest, Esophageal stricture Hypotension Qualifiers: Hypotension type: unspecified hypotension type Qualified Code(s): I95.9 - Hypotension, unspecified Condition: Good Disposition: HOME, SELF-CARE Additional Instructions: Follow-up with territory sales representative [place] office if symptoms persist. Take medicines as directed so follow-up with Dr. Lim solar electric installer if symptoms persist and follow-up with your dentist with your dental lesions. Medicines as directed but also if your blood pressure is too low try to hold off on metoprolol blood pressure medicine; call your doctor if blood pressure drops too low Prescriptions: Fluticasone Propion/Salmeterol [Advair HFA 115-21 mcg Inhaler] 2 puff IH DAILY PRN #1 mdi PRN Reason: Amoxicillin/Potassium Clav [Augmentin 875-125 Tablet] 1 tab PO BID #14 tab Sucralfate [Carafate 1 gm Tablet] 1 gm PO ACHS #30 tablet Referrals: EDUARD ALVA PA-C [Primary Care Provider] - Follow up as needed
[2019-10-29 18:28] VITALS: BP 135/82
== END 2019-10-29 18:26 | disposition home or self-care (01) ==
LOC: ER 12:56
DX: K22.2 Esophageal obstruction (principal); I20.9 Angina pectoris, unspecified; I10 Essential (primary) hypertension; I25.2 Old myocardial infarction; K08.9 Disorder of teeth and supporting structures, unspecified; I95.9 Hypotension, unspecified; R68.84 Jaw pain; R10.13 Epigastric pain; Z95.5 Presence of coronary angioplasty implant and graft; Z97.2 Presence of dental prosthetic device (complete) (partial); Z87.891 Personal history of nicotine dependence; Z79.899 Other long term (current) drug therapy; Z79.02 Long term (current) use of antithrombotics/antiplatelets; Z88.6 Allergy status to analgesic agent; Z88.5 Allergy status to narcotic agent; Z88.1 Allergy status to other antibiotic agents
CPT/HCPCS: 93005; 99284; 36415; 85025; 80053; 84484; 71046; 93010; A9270

== ENCOUNTER 2020-07-31 08:06 | Emergency (ER) | payer MEDICARE ==
[2020-07-31 08:15] VITALS: BP 134/70
--- NOTE | 2020-07-31 10:18 | RADIOLOGY REPORT (SQ) ---
EXAM DESCRIPTION: RIBS LEFT W/PA CHEST IMAGES COMPLETED DATE/TIME: 07/31/2020 9:55 am REASON FOR STUDY: pain and sob COMPARISON: 10/29/2019 TECHNIQUE: Frontal view of the chest and additional views of the left ribs acquired. NUMBER OF VIEWS: Three view. LIMITATIONS: None. FINDINGS: FRONTAL CXR: Minimal atelectasis in the left base. No pneumothorax. RIBS: No displaced rib fractures. No lytic or blastic bony lesions. OTHER: No other significant finding. IMPRESSION: NO PNEUMOTHORAX. NO DISPLACED RIB FRACTURES. COMMENT: SITE OF TRAUMA/COMPLAINT MARKED/STAMP COMPLETED: NO. TECHNICAL DOCUMENTATION: JOB ID: [id number] [employer]- All Rights Reserved Reading location - IP/workstation name: [email or web address]
[2020-07-31] MEDS ORDERED: HYDROCODONE/ACETAMINOPHEN 5-325 MG TABLET PO ONE (10:59)
[2020-07-31] MEDS ORDERED: ONDANSETRON 4 MG TAB.RAPDIS PO ONE (10:59)
--- NOTE | 2020-07-31 12:02 | ER Document Report ---
Entered by PEDRO PABLO ROSE SCRIBE 07/31/20 1041 Acting as scribe for:BEN HAYWOOD MD ED General - General Chief Complaint: Rib Pain Stated Complaint: LEFT RIB PAIN, BACK PAIN Time Seen by Provider: 07/31/20 10:38 Primary Care Provider: OMA FORD NP [Primary Care Provider] - Follow up as needed Mode of Arrival: Ambulatory Information source: Patient Notes: This 69 year old female patient presents to the emergency department today with complaints of left lateral chest wall pain since 07/26/20. Patient reports that she was bending over to reach deep down into a deep freezer and she "heard a pop" in the left side of her chest and she has had excruciating pain over this area since. Patient came to the ED today from her GI doctor as she was scheduled to have an upper endoscopy this was cancelled due to the pain. TRAVEL OUTSIDE OF THE [place] IN LAST 30 DAYS: No - Related Data Allergies/Adverse Reactions: codeine Allergy (Verified 10/29/19 13:22) erythromycin base Allergy (Verified 10/29/19 13:22) Past Medical History - General Information source: Patient - Social History Smoking Status: Former Smoker Cigarette use (# per day): No Chew tobacco use (# tins/day): No Frequency of alcohol use: None Drug Abuse: None Lives with: Family Family History: Reviewed & Not Pertinent - Past Medical History Cardiac Medical History: Reports: Hx Heart Attack - 2018, Hx Hypercholesterolemia, Hx Hypertension Pulmonary Medical History: Reports: Hx COPD Endocrine Medical History: Reports: Hx Diabetes Mellitus Type 2 Musculoskeletal Medical History: Reports Hx Arthritis - back Past Surgical History: Reports: Hx Abdominal Surgery - obstruction, Hx Cardiac Surgery - stents x2, Hx Hysterectomy, Hx Orthopedic Surgery - carpal tunnel - Immunizations Hx Diphtheria, Pertussis, Tetanus Vaccination: Yes Review of Systems - Review of Systems Constitutional: No symptoms reported EENT: No symptoms reported Cardiovascular: No symptoms reported Respiratory: See HPI, Other - left sided chest wall pain Gastrointestinal: No symptoms reported Genitourinary: No symptoms reported Female Genitourinary: No symptoms reported Musculoskeletal: No symptoms reported Skin: No symptoms reported Hematologic/Lymphatic: No symptoms reported Neurological/Psychological: No symptoms reported -: Yes All other systems reviewed and negative Physical Exam - Vital signs Vitals: Temp Pulse Resp BP Pulse Ox 97.7 F 72 16 134/70 H 98 07/31/20 08:13 07/31/20 08:13 07/31/20 08:13 07/31/20 08:13 07/31/20 08:13 - Notes Notes: Physical Exam: General: Alert, appears uncomfortable, pain with movement like sitting up for lung auscultation. HEENT: Normocephalic. Atraumatic. PERRL. Extraocular movements intact. Oropharynx clear. Neck: Supple. Non-tender. Respiratory: No respiratory distress. Clear and equal breath sounds bilaterally. Left lateral chest wall tenderness to palpation. Cardiovascular: Regular rate and rhythm. Abdominal: LUQ tenderness with palpation, especially over the left anterior rib margin. No distension. Normal Bowel Sounds. Back: No gross abnormalities. Extremities: Moves all four extremities. Upper extremities: Normal inspection. Normal ROM. Lower extremities: Normal inspection. No edema. Normal ROM. Neurological: Normal cognition. AAOx4. Normal speech. Psychological: Normal affect. Normal Mood. Skin: Warm. Dry. Normal color. Course - Re-evaluation Re-evalutation: 07/31/20 12:34 The patient continues to have discomfort, she did not develop any nauseousness with the Hines after she received Zofran at same time. She will be discharged home with prescription for Zofran to take prior to taking the pain pills. She is again advised that she will not be pain-free, the pain medication takes the edge off the pain but it will take time to get well. - Vital Signs Vital signs: Temp Pulse Resp BP Pulse Ox 97.7 F 72 16 134/70 H 98 07/31/20 08:13 07/31/20 08:13 07/31/20 08:13 07/31/20 08:13 07/31/20 08:13 - Diagnostic Test Radiology reviewed: Image reviewed, Reports reviewed - Left rib x-rays do not show fractures. Discharge - Discharge Clinical Impression: Rib pain on left side Condition: Stable Disposition: HOME, SELF-CARE Additional Instructions: Rib Contusion You have been diagnosed as having bruised ribs. It will usually take a few weeks for these injured ribs to heal. You should cough or take a deep breath at least every hour or two to prevent lung complications. You should not engage in any strenuous physical activity until released by your physician. The usual rule is "if it hurts, don't do it." Return if you develop any of the following: (1) Fever or chills. (2) Persistent cough, coughing up blood, or shortness of breath. (3) Increasing pain. (4) Weakness, lightheadedness, or fainting. Take the Zofran about 10 minutes before taking the Hines to prevent nauseousness. Take pain medication as prescribed to help reduce the severity of your rib pain. Follow-up with your primary care provider next week if not improving. RETURN TO THE EMERGENCY ROOM IF ANY NEW OR WORSENING SYMPTOMS. Prescriptions: Hydrocodone/Acetaminophen [Hines 7.5-325 mg Tablet] 1 tab PO ASDIR PRN #20 tablet PRN Reason: Ondansetron [Zofran Odt 4 mg Tablet] 1 - 2 tab PO ASDIR PRN #25 tab.rapdis PRN Reason: Referrals: OMA FORD, COUPON REDEMPTION CLERK [Primary Care Provider] - Follow up as needed I personally performed the services described in the documentation, reviewed and edited the documentation which was dictated to the scribe in my presence, and it accurately records my words and actions.
== END 2020-07-31 13:13 | disposition home or self-care (01) ==
LOC: ER 08:06
DX: R07.81 Pleurodynia (principal); R07.89 Other chest pain; R10.812 Left upper quadrant abdominal tenderness; J44.9 Chronic obstructive pulmonary disease, unspecified; I10 Essential (primary) hypertension; I25.2 Old myocardial infarction; E11.9 Type 2 diabetes mellitus without complications; Z95.5 Presence of coronary angioplasty implant and graft; Z87.891 Personal history of nicotine dependence; Z88.6 Allergy status to analgesic agent; Z88.5 Allergy status to narcotic agent
CPT/HCPCS: 99283; 71101; A9270 ×2; S0119

== ENCOUNTER → 2020-08-04 | Day surgery (SDC) | payer MEDICARE, OTHER ==
[~2020-08-04] MED LIST: LIDOCAINE 2% INJ-PF (20 MG/ML) 10 ML AMPUL ONE; PROPOFOL INJ 200 MG/20 ML VIAL IV ONE
--- NOTE | 2020-08-04 10:30 | Operative Report ---
Operative Report DATE OF SURGERY: 08/04/20 Operative Report: The risks benefits and alternatives of the procedure explained to the patient in detail and informed consent is obtained.A GIF Olympus video scope was inserted into the patient's mouth and hypopharynx, the esophagus is identified intubated and insufflated ,the scope was then advanced through the esophagus stomach and duodenum, retroflexion maneuver is done, the esophagus stomach and first and second portions of the duodenum examined PREOPERATIVE DIAGNOSIS: Noncardiac chest pain POSTOPERATIVE DIAGNOSIS: Gastritis status post biopsy OPERATION: EGD with biopsy SURGEON: WENCESLAO FIGUEREDO ANESTHESIA: LMAC TISSUE REMOVED OR ALTERED: As noted above. COMPLICATIONS: None. ESTIMATED BLOOD LOSS: None. INTRAOPERATIVE FINDINGS: As noted above. PROCEDURE: Patient tolerated the procedure well. No immediate postprocedure complications are noted. Patient is discharged in good condition. Discharge date 08/04/2020 Discharge diet: Regular. Discharge activity: Regular. 2 to 3-week follow-up to discuss findings. Patient is instructed call the office or proceed to the emergency room should there be any further problems questions. Wait on the pathology.
[2020-08-04 11:48] VITALS: BP 148/84
== END ==
LOC: END 07-31 06:54
PROVIDERS: ATTEND Internal Medicine Gastroenterology
DX: K29.50 Unspecified chronic gastritis without bleeding (principal); I25.10 Atherosclerotic heart disease of native coronary artery without angina pectoris; K21.9 Gastro-esophageal reflux disease without esophagitis; I10 Essential (primary) hypertension; J44.9 Chronic obstructive pulmonary disease, unspecified; G47.30 Sleep apnea, unspecified; Z95.5 Presence of coronary angioplasty implant and graft; Z03.818 Encounter for observation for suspected exposure to other biological agents ruled out; Z79.02 Long term (current) use of antithrombotics/antiplatelets
CPT/HCPCS: 99283; 43239; 82962 ×2; 88305 ×2; 71101; 00731; U0003; A9270 ×2; J2704; J3490; C9803; 87635; S0119